=== PATIENT | female | born 1940 | race Caucasian/White ===

== ENCOUNTER 2017-07-30 10:31 | Inpatient (IN) | payer OTHER ==
[2017-07-30] MEDS: VANCOMYCIN 1 GM 250 ML IVPB (13:07)
[2017-07-30] MEDS ORDERED: PROPOFOL 20 ML (14:19)
[2017-07-30] MEDS ORDERED: MIDAZOLAM 1 MG/ML 2 ML INJ (14:20)
[2017-07-30] MEDS ORDERED: FENTAnyl 50 MCG/ML VIAL ×3 (14:20→14:52)
[2017-07-30] MEDS ORDERED: ONDANSETRON 4 MG INJ (14:20)
[2017-07-30] MEDS ORDERED: METOCLOPRAMIDE 10 MG INJ (14:20)
[2017-07-30] MEDS ORDERED: LABETALOL HCL 20MG INJ IV (15:00)
[2017-07-30] MEDS ORDERED: DIPHENHYDRAMINE 50 MG INJ IV (15:00)
[2017-07-30] MEDS ORDERED: HYDROmorphONE (0.2 MG/ML) 10ML SYG IV ×3 (15:00)
[2017-07-30] MEDS ORDERED: ONDANSETRON 4 MG INJ IV (15:00)
[2017-07-30] MEDS ORDERED: MEPERIDINE 25 MG INJ IV (15:00)
[2017-07-30] MEDS ORDERED: hydrALAzine 20 MG INJ IV (15:00)
[2017-07-30] MEDS ORDERED: morphine 2 MG INJ IV (15:30)
[2017-07-30] MEDS ORDERED: HYDROmorphONE 2 MG/ML SYG (15:33)
[2017-07-30] MEDS: SOD CHLORIDE 0.9% 1,000 ML IV (18:08)
[2017-07-30] MEDS: ONDANSETRON 4 MG INJ IV (18:13)
[2017-07-30] MEDS: D5W-0.45 NACL + KCL 20 MEQ 1,000 ML IV (18:13)
[2017-07-31] MEDS: D5W-0.45 NACL + KCL 20 MEQ 1,000 ML IV ×4 (02:03→18:02)
[2017-07-31] MEDS: traMADol 50 MG TAB PO (05:23)
[2017-07-31] MEDS: ONDANSETRON 4 MG INJ IV (08:46)
[2017-07-31] MEDS: AL HYDROX/MG HYDROX/SIMETH 30 ML CUP PO (13:20)
[2017-07-31] MEDS: PANTOPRAZOLE (EC) 40 MG TAB PO ×2 (13:20→17:59)
[2017-08-01] MEDS: D5W-0.45 NACL + KCL 20 MEQ 1,000 ML IV ×2 (03:35→09:23)
[2017-08-01 05:15] LABS: ADD MAN DIFF? NO
[2017-08-01 05:18] LABS: BASOPHILS % 0.4 % (0.0-2.0); EOSINOPHILS # 0.1 10^3/ul (0.0-0.5); HEMATOCRIT 24.8 % (37.0-47.0); HEMOGLOBIN 8.2 g/dl (12.0-16.0); LYMPHOCYTES # 1.9 10^3/ul (0.8-2.9); LYMPHOCYTES % 37.1 % (15.0-51.0); MEAN CORPUSCULAR HEMOGLOBIN 30.7 pg (29.0-33.0); MEAN CORPUSCULAR HGB CONC 33.1 g/dl (32.0-37.0); MEAN CORPUSCULAR VOLUME 92.9 fl (82.0-101.0); MEAN PLATELET VOLUME 9.5 fl (7.4-10.4); MONOCYTE # 0.4 10^3/ul (0.3-0.9); MONOCYTES % 8.2 % (0.0-11.0); NEUTROPHIL # 2.6 10^3/ul (1.6-7.5); NEUTROPHILS % 52.1 % (39.0-77.0); PLATELET COUNT 153 10^3/UL (140-415); RED BLOOD COUNT 2.67 10^6/ul (4.20-5.40); RED CELL DISTRIBUTION WIDTH 15.6 % (11.5-14.5)
[2017-08-01 05:39] LABS: ANION GAP 9 (8-16); BLOOD UREA NITROGEN 8 mg/dl (7-20); CALCIUM 8.5 mg/dl (8.4-10.2); CARBON DIOXIDE 24 mmol/L (21-31); CHLORIDE 111 mmol/L (97-110); CREATININE 0.77 mg/dl (0.44-1.00); GLUCOSE 98 mg/dl (70-220); POTASSIUM 4.1 mmol/L (3.5-5.1); SODIUM 140 mmol/L (135-144)
[2017-08-01 05:41] LABS: INR 1.08; PROTIME 14.1 Sec (11.9-14.9); PT RATIO 1.1
[2017-08-01] MEDS: PANTOPRAZOLE (EC) 40 MG TAB PO (06:02)
== END 2017-08-01 14:55 | disposition home or self-care (01) | DRG 583 ==
LOC: REC 10:31 → MS1 16:09
PROC: 0HTU0ZZ Resection of Left Breast, Open Approach (ICD-10-PCS; principal; 2017-07-30 14:21)
DX: C50.912 Malignant neoplasm of unspecified site of left female breast (principal)
CPT/HCPCS: 71045; 80048; 85025; 85610; 85730; 88307; 93005

== ENCOUNTER 2017-08-02 09:52 | Emergency (ER) | payer OTHER | END 2017-08-02 12:28 | disposition home or self-care (01) | LOC: E/R 09:52 | DX: Z48.01 Encounter for change or removal of surgical wound dressing (principal); I10 Essential (primary) hypertension; Z85.3 Personal history of malignant neoplasm of breast | CPT/HCPCS: 99281; Z7502 ==

== ENCOUNTER 2017-12-03 15:47 | Inpatient (IN) | payer OTHER ==
[2017-12-03 16:37] LABS: ADD MAN DIFF? NO
[2017-12-03 16:43] LABS: BASOPHILS % 0.1 % (0.0-2.0); HEMATOCRIT 33.1 % (37.0-47.0); HEMOGLOBIN 11.3 g/dl (12.0-16.0); LYMPHOCYTES # 0.7 10^3/ul (0.8-2.9); LYMPHOCYTES % 4.8 % (15.0-51.0); MEAN CORPUSCULAR HEMOGLOBIN 31.7 pg (29.0-33.0); MEAN CORPUSCULAR HGB CONC 34.1 g/dl (32.0-37.0); MEAN CORPUSCULAR VOLUME 92.7 fl (82.0-101.0); MEAN PLATELET VOLUME 9.8 fl (7.4-10.4); MONOCYTE # 0.4 10^3/ul (0.3-0.9); MONOCYTES % 2.7 % (0.0-11.0); NEUTROPHIL # 13.7 10^3/ul (1.6-7.5); PLATELET COUNT 223 10^3/UL (140-415); RED BLOOD COUNT 3.57 10^6/ul (4.20-5.40); RED CELL DISTRIBUTION WIDTH 13.7 % (11.5-14.5)
[2017-12-03 16:43] LABS: WHITE BLOOD COUNT 15.1 10^3/ul (4.8-10.8)
[2017-12-03] MEDS: ONDANSETRON 4 MG INJ IV (16:45)
[2017-12-03] MEDS: SOD CHLORIDE 0.9% 1,000 ML IV ×3 (16:45→20:03)
[2017-12-03] MEDS: morphine 4 MG/ML VIAL IV (16:45)
[2017-12-03 16:46] LABS: ADD UMIC YES; UR ASCORBIC ACID NEGATIVE (NEGATIVE); UR BILIRUBIN (Dip) 1+ mg/dL (NEGATIVE); UR BLOOD (Dip) 1+ mg/dL (NEGATIVE); UR CLARITY CLEAR (CLEAR); UR COLOR AMBER (YELLOW); UR GLUCOSE (Dip) NEGATIVE (NEGATIVE); UR KETONES (Dip) NEGATIVE (NEGATIVE); UR LEUKOCYTE ESTERASE (Dip) TRACE Leu/ul (NEGATIVE); UR NITRITE (Dip) NEGATIVE (NEGATIVE); UR RBC 10 /HPF (0-5); UR SPECIFIC GRAVITY (Dip) 1.014 (1.003-1.030); UR TOTAL PROTEIN (Dip) 2+ mg/dl (NEGATIVE); UR UROBILINOGEN (Dip) 2+ mg/dL (NEGATIVE); UR WBC 3 /HPF (0-5)
[2017-12-03 17:01] LABS: ALANINE AMINOTRANSFERASE 234 IU/L (13-69); ALBUMIN 4.4 g/dl (3.3-4.9); ALBUMIN/GLOBULIN RATIO 1.12; ALKALINE PHOSPHATASE 304 IU/L (42-121); ANION GAP 16 (8-16); ASPARTATE AMINO TRANSFERASE 247 IU/L (15-46); BILIRUBIN,INDIRECT 1.4 mg/dl (0-1.1); BILIRUBIN,TOTAL 3.7 mg/dl (0.2-1.3); BLOOD UREA NITROGEN 16 mg/dl (7-20); CALCIUM 9.1 mg/dl (8.4-10.2); CARBON DIOXIDE 23 mmol/L (21-31); CHLORIDE 105 mmol/L (97-110); CREATININE 0.99 mg/dl (0.44-1.00); GLUCOSE 119 mg/dl (70-220); POTASSIUM 3.6 mmol/L (3.5-5.1); SODIUM 140 mmol/L (135-144); TOTAL PROTEIN 8.3 g/dl (6.1-8.1)
[2017-12-03 17:22] LABS: LIPASE 14991 U/L (23-300)
[2017-12-03] MEDS ORDERED: ONDANSETRON 4 MG INJ IV ×2 (19:00→20:30)
[2017-12-03 19:23] LABS: LACTIC ACID 1.5 mmol/L (0.5-2.0)
[2017-12-03] MEDS: CEFTRIAXONE 1 GM/50 ML (PMX) 50 ML IVPB (19:25)
[2017-12-03] MEDS ORDERED: NACL 0.9% 3 ML SYG IV (20:30)
[2017-12-03] MEDS ORDERED: morphine 2 MG INJ IV (20:30)
[2017-12-03 21:32] LABS: LACTIC ACID 1.9 mmol/L (0.5-2.0)
[2017-12-04] MEDS: SOD CHLORIDE 0.9% 1,000 ML IV ×2 (05:15→16:11)
[2017-12-04 05:31] LABS: ADD MAN DIFF? NO
[2017-12-04 05:35] LABS: ABNORMAL IP MESSAGE 1; BASOPHILS % 0.2 % (0.0-2.0); HEMATOCRIT 31.1 % (37.0-47.0); HEMOGLOBIN 10.5 g/dl (12.0-16.0); LYMPHOCYTES # 0.4 10^3/ul (0.8-2.9); LYMPHOCYTES % 4.2 % (15.0-51.0); MEAN CORPUSCULAR HEMOGLOBIN 31.7 pg (29.0-33.0); MEAN CORPUSCULAR HGB CONC 33.8 g/dl (32.0-37.0); MEAN PLATELET VOLUME 10.1 fl (7.4-10.4); MONOCYTE # 0.1 10^3/ul (0.3-0.9); MONOCYTES % 1.4 % (0.0-11.0); NEUTROPHIL # 9.6 10^3/ul (1.6-7.5); NEUTROPHILS % 93.6 % (39.0-77.0); PLATELET COUNT 174 10^3/UL (140-415); RED BLOOD COUNT 3.31 10^6/ul (4.20-5.40); RED CELL DISTRIBUTION WIDTH 13.9 % (11.5-14.5)
[2017-12-04 05:35] LABS: WHITE BLOOD COUNT 10.3 10^3/ul (4.8-10.8)
[2017-12-04 05:47] LABS: POSITIVE DIFF @See below
[2017-12-04 06:03] LABS: ALANINE AMINOTRANSFERASE 162 IU/L (13-69); ALBUMIN 3.8 g/dl (3.3-4.9); ALBUMIN/GLOBULIN RATIO 1.11; ALKALINE PHOSPHATASE 267 IU/L (42-121); ANION GAP 14 (8-16); ASPARTATE AMINO TRANSFERASE 127 IU/L (15-46); BILIRUBIN,TOTAL 2.9 mg/dl (0.2-1.3); BLOOD UREA NITROGEN 12 mg/dl (7-20); CALCIUM 8.1 mg/dl (8.4-10.2); CARBON DIOXIDE 21 mmol/L (21-31); CHLORIDE 109 mmol/L (97-110); CREATININE 0.74 mg/dl (0.44-1.00); GLUCOSE 98 mg/dl (70-220); POTASSIUM 3.2 mmol/L (3.5-5.1); SODIUM 141 mmol/L (135-144); TOTAL PROTEIN 7.2 g/dl (6.1-8.1)
[2017-12-04 06:57] LABS: HEMOGLOBIN A1C 5.8 % (0-5.9)
[2017-12-04] MEDS: ENOXAPARIN 30 MG/0.3 ML SYG SC (08:42)
[2017-12-04] MEDS ORDERED: IOHEXOL 300MG/ML 30 ML BTL (12:16)
[2017-12-04] MEDS ORDERED: GLYCOPYRROLATE 0.4 MG INJ (12:43)
[2017-12-04] MEDS ORDERED: LIDOCAINE 2% (SDV) 5 ML INJ (12:43)
[2017-12-04] MEDS ORDERED: ROCURONIUM 50 MG INJ (12:43)
[2017-12-04] MEDS ORDERED: PROPOFOL 20 ML (12:43)
[2017-12-04] MEDS ORDERED: SUCCINYLCHOLINE CHLORIDE 100 MG/5 ML SYG IV (12:43)
[2017-12-04] MEDS ORDERED: NEOSTIGMINE 3 MG/3 ML SYRINGE (12:44)
[2017-12-04] MEDS ORDERED: DEXAMETHASONE 4 MG/ML 1 ML INJ (13:03)
[2017-12-04] MEDS ORDERED: DIPHENHYDRAMINE 50 MG INJ (13:03)
[2017-12-04] MEDS ORDERED: ONDANSETRON 4 MG INJ (13:24)
[2017-12-04] MEDS ORDERED: ONDANSETRON 4 MG INJ IV (13:30)
[2017-12-04] MEDS ORDERED: DIPHENHYDRAMINE 50 MG INJ IV (13:30)
[2017-12-04] MEDS ORDERED: MEPERIDINE 25 MG INJ IV (13:30)
[2017-12-04] MEDS ORDERED: FENTAnyl 50 MCG/ML VIAL IV ×3 (13:30)
[2017-12-04] MEDS ORDERED: EPHEDrine SULFATE 50 MG/5 ML SYG IV (13:30)
[2017-12-04] MEDS ORDERED: METOCLOPRAMIDE 10 MG INJ IV (13:30)
[2017-12-04] MEDS ORDERED: HYDROmorphONE 1 MG/5 ML IV SYRINGE IV ×3 (13:30)
[2017-12-04] MEDS ORDERED: MIDAZOLAM 1 MG/ML 2 ML INJ IV (13:30)
[2017-12-04] MEDS ORDERED: hydrALAzine 20 MG INJ IV (13:30)
[2017-12-04] MEDS ORDERED: LABETALOL HCL 20MG INJ IV (13:30)
[2017-12-04] MEDS: INDOMETHACIN 50 MG SUPP PR (13:58)
[2017-12-04] MEDS: MEROPENEM 1 GM/50ML(PMX) 50 ML IVPB (15:39)
[2017-12-04] MEDS: metroNIDAZOLE 500 MG/NS (PMX) 100 ML IVPB ×2 (17:26→23:50)
[2017-12-05] MEDS: SOD CHLORIDE 0.9% 1,000 ML IV ×2 (02:03→06:17)
[2017-12-05] MEDS: MEROPENEM 1 GM/50ML(PMX) 50 ML IVPB ×3 (02:21→20:38)
[2017-12-05 05:52] LABS: WHITE BLOOD COUNT 10.2 10^3/ul (4.8-10.8)
[2017-12-05 05:52] LABS: HEMATOCRIT 26.2 % (37.0-47.0); HEMOGLOBIN 8.6 g/dl (12.0-16.0); MEAN CORPUSCULAR HEMOGLOBIN 30.8 pg (29.0-33.0); MEAN CORPUSCULAR HGB CONC 32.8 g/dl (32.0-37.0); MEAN CORPUSCULAR VOLUME 93.9 fl (82.0-101.0); MEAN PLATELET VOLUME 10.7 fl (7.4-10.4); PLATELET COUNT 141 10^3/UL (140-415); RED BLOOD COUNT 2.79 10^6/ul (4.20-5.40); RED CELL DISTRIBUTION WIDTH 14.1 % (11.5-14.5)
[2017-12-05 05:59] LABS: ADD MAN DIFF? YES; POSITIVE DIFF @See below
[2017-12-05] MEDS: metroNIDAZOLE 500 MG/NS (PMX) 100 ML IVPB ×4 (06:18→23:46)
[2017-12-05 06:24] LABS: ALANINE AMINOTRANSFERASE 96 IU/L (13-69); ALBUMIN 3.1 g/dl (3.3-4.9); ALKALINE PHOSPHATASE 224 IU/L (42-121); ANION GAP 10 (8-16); ASPARTATE AMINO TRANSFERASE 48 IU/L (15-46); BILIRUBIN,INDIRECT 0.7 mg/dl (0-1.1); BILIRUBIN,TOTAL 0.7 mg/dl (0.2-1.3); BLOOD UREA NITROGEN 18 mg/dl (7-20); CALCIUM 7.6 mg/dl (8.4-10.2); CARBON DIOXIDE 22 mmol/L (21-31); CHLORIDE 114 mmol/L (97-110); CREATININE 0.71 mg/dl (0.44-1.00); GLUCOSE 110 mg/dl (70-220); LIPASE 607 U/L (23-300); POTASSIUM 3.3 mmol/L (3.5-5.1); SODIUM 143 mmol/L (135-144); TOTAL PROTEIN 6.2 g/dl (6.1-8.1)
[2017-12-05 07:52] LABS: BAND NEUTROPHILS % (M) 30 % (0-4); LYMPHOCYTES #M 0.4 10^3/ul (0.8-2.9); LYMPHOCYTES % (M) 4 % (15-51); MONOCYTE #M 0.1 10^3/ul (0.3-0.9); MONOCYTES % (M) 1 % (0-11); PLATELET ESTIMATE NORMAL; SEG NEUT #M 6.9 10^3/ul (1.6-7.5); SEGMENTED NEUTROPHILS (M) % 65 % (39-77); SMUDGE%M 11 % (0-0)
[2017-12-05] MEDS: HYDROmorphONE 1 MG/ML SYG IV ×3 (09:08→20:41)
[2017-12-05] MEDS: ENOXAPARIN 30 MG/0.3 ML SYG SC (09:16)
[2017-12-05] MEDS: D5W-0.45 NACL + KCL 20 MEQ 1,000 ML IV ×2 (13:28→23:43)
[2017-12-05] MEDS: DIPHENHYDRAMINE 50 MG INJ IV (19:00)
[2017-12-05 22:44] LABS: HEMATOCRIT 25.3 % (37.0-47.0); HEMOGLOBIN 8.7 g/dl (12.0-16.0)
[2017-12-06] MEDS: D5W-0.45 NACL + KCL 20 MEQ 1,000 ML IV ×3 (05:00→18:33)
[2017-12-06] MEDS: metroNIDAZOLE 500 MG/NS (PMX) 100 ML IVPB (06:01)
[2017-12-06 06:10] LABS: ADD MAN DIFF? NO
[2017-12-06 06:41] LABS: BASOPHILS % 0.1 % (0.0-2.0); EOSINOPHILS % 0.4 % (0.0-7.0); HEMATOCRIT 28.7 % (37.0-47.0); HEMOGLOBIN 9.4 g/dl (12.0-16.0); LYMPHOCYTES # 1.4 10^3/ul (0.8-2.9); LYMPHOCYTES % 15.3 % (15.0-51.0); MEAN CORPUSCULAR HEMOGLOBIN 30.8 pg (29.0-33.0); MEAN CORPUSCULAR HGB CONC 32.8 g/dl (32.0-37.0); MEAN CORPUSCULAR VOLUME 94.1 fl (82.0-101.0); MEAN PLATELET VOLUME 10.8 fl (7.4-10.4); MONOCYTE # 0.3 10^3/ul (0.3-0.9); MONOCYTES % 3.3 % (0.0-11.0); NEUTROPHIL # 7.4 10^3/ul (1.6-7.5); NEUTROPHILS % 80.5 % (39.0-77.0); PLATELET COUNT 158 10^3/UL (140-415); RED BLOOD COUNT 3.05 10^6/ul (4.20-5.40); RED CELL DISTRIBUTION WIDTH 14.3 % (11.5-14.5)
[2017-12-06 06:41] LABS: WHITE BLOOD COUNT 9.3 10^3/ul (4.8-10.8)
[2017-12-06 06:43] LABS: ALANINE AMINOTRANSFERASE 76 IU/L (13-69); ALBUMIN 3.1 g/dl (3.3-4.9); ALBUMIN/GLOBULIN RATIO 0.88; ALKALINE PHOSPHATASE 209 IU/L (42-121); ANION GAP 10 (8-16); ASPARTATE AMINO TRANSFERASE 25 IU/L (15-46); BILIRUBIN,INDIRECT 0.6 mg/dl (0-1.1); BILIRUBIN,TOTAL 0.6 mg/dl (0.2-1.3); BLOOD UREA NITROGEN 15 mg/dl (7-20); CARBON DIOXIDE 20 mmol/L (21-31); CHLORIDE 115 mmol/L (97-110); CREATININE 0.56 mg/dl (0.44-1.00); GLUCOSE 139 mg/dl (70-220); LIPASE 478 U/L (23-300); POTASSIUM 3.2 mmol/L (3.5-5.1); SODIUM 142 mmol/L (135-144); TOTAL PROTEIN 6.6 g/dl (6.1-8.1)
[2017-12-06] MEDS: MEROPENEM 1 GM/50ML(PMX) 50 ML IVPB ×2 (08:46→21:02)
[2017-12-06] MEDS: ENOXAPARIN 30 MG/0.3 ML SYG SC (08:48)
[2017-12-06 09:47] LABS: HEMATOCRIT 28.3 % (37.0-47.0); HEMOGLOBIN 9.4 g/dl (12.0-16.0)
[2017-12-06 22:31] LABS: HEMATOCRIT 28.7 % (37.0-47.0); HEMOGLOBIN 9.9 g/dl (12.0-16.0)
[2017-12-07] MEDS: D5W-0.45 NACL + KCL 20 MEQ 1,000 ML IV ×3 (03:25→20:32)
[2017-12-07 06:00] LABS: ADD MAN DIFF? NO
[2017-12-07 06:04] LABS: WHITE BLOOD COUNT 8.5 10^3/ul (4.8-10.8)
[2017-12-07 06:04] LABS: BASOPHILS % 0.2 % (0.0-2.0); EOSINOPHILS # 0.1 10^3/ul (0.0-0.5); EOSINOPHILS % 0.8 % (0.0-7.0); HEMATOCRIT 29.1 % (37.0-47.0); HEMOGLOBIN 10.2 g/dl (12.0-16.0); MEAN CORPUSCULAR HEMOGLOBIN 31.8 pg (29.0-33.0); MEAN CORPUSCULAR HGB CONC 35.1 g/dl (32.0-37.0); MEAN CORPUSCULAR VOLUME 90.7 fl (82.0-101.0); MEAN PLATELET VOLUME 10.8 fl (7.4-10.4); MONOCYTE # 0.7 10^3/ul (0.3-0.9); MONOCYTES % 8.6 % (0.0-11.0); NEUTROPHIL # 5.7 10^3/ul (1.6-7.5); NEUTROPHILS % 66.9 % (39.0-77.0); PLATELET COUNT 157 10^3/UL (140-415); RED BLOOD COUNT 3.21 10^6/ul (4.20-5.40); RED CELL DISTRIBUTION WIDTH 13.5 % (11.5-14.5)
[2017-12-07 06:30] LABS: ALANINE AMINOTRANSFERASE 61 IU/L (13-69); ALBUMIN 3.1 g/dl (3.3-4.9); ALKALINE PHOSPHATASE 208 IU/L (42-121); ANION GAP 9 (8-16); ASPARTATE AMINO TRANSFERASE 22 IU/L (15-46); BILIRUBIN,INDIRECT 0.9 mg/dl (0-1.1); BILIRUBIN,TOTAL 0.9 mg/dl (0.2-1.3); BLOOD UREA NITROGEN 5 mg/dl (7-20); CALCIUM 7.8 mg/dl (8.4-10.2); CARBON DIOXIDE 24 mmol/L (21-31); CHLORIDE 103 mmol/L (97-110); CREATININE 0.43 mg/dl (0.44-1.00); GLUCOSE 149 mg/dl (70-220); SODIUM 133 mmol/L (135-144); TOTAL PROTEIN 6.2 g/dl (6.1-8.1)
[2017-12-07 06:37] LABS: POTASSIUM 2.6 mmol/L (3.5-5.1)
[2017-12-07] MEDS ORDERED: POTASSIUM CHLORIDE (SR) 20 MEQ TAB PO (06:54)
[2017-12-07] MEDS: POTASSIUM CHLORIDE (SR) 20 MEQ TAB PO (07:04)
[2017-12-07] MEDS: MEROPENEM 1 GM/50ML(PMX) 50 ML IVPB ×2 (08:29→20:28)
[2017-12-07] MEDS: ENOXAPARIN 30 MG/0.3 ML SYG SC (08:29)
[2017-12-07 10:06] LABS: HEMATOCRIT 29.1 % (37.0-47.0); HEMOGLOBIN 10.1 g/dl (12.0-16.0)
[2017-12-07 14:08] LABS: OCCULT BLOOD STOOL NEGATIVE (NEGATIVE)
[2017-12-07 22:13] LABS: HEMATOCRIT 29.1 % (37.0-47.0); HEMOGLOBIN 10.1 g/dl (12.0-16.0)
[2017-12-08] MEDS: D5W-0.45 NACL + KCL 20 MEQ 1,000 ML IV ×5 (05:36→23:35)
[2017-12-08 06:38] LABS: ADD MAN DIFF? NO
[2017-12-08 06:48] LABS: BASOPHILS % 0.3 % (0.0-2.0); EOSINOPHILS # 0.1 10^3/ul (0.0-0.5); EOSINOPHILS % 0.8 % (0.0-7.0); HEMATOCRIT 29.7 % (37.0-47.0); HEMOGLOBIN 10.4 g/dl (12.0-16.0); LYMPHOCYTES # 2.1 10^3/ul (0.8-2.9); LYMPHOCYTES % 27.3 % (15.0-51.0); MEAN CORPUSCULAR HEMOGLOBIN 31.5 pg (29.0-33.0); MEAN PLATELET VOLUME 10.8 fl (7.4-10.4); MONOCYTE # 0.7 10^3/ul (0.3-0.9); MONOCYTES % 9.1 % (0.0-11.0); NEUTROPHIL # 4.7 10^3/ul (1.6-7.5); PLATELET COUNT 160 10^3/UL (140-415); RED CELL DISTRIBUTION WIDTH 13.3 % (11.5-14.5); RETICULOCYTE COUNT # 0.013 X10^6 (0.020-0.110); RETICULOCYTE COUNT % 0.4 % (0.5-1.5)
[2017-12-08 06:48] LABS: WHITE BLOOD COUNT 7.6 10^3/ul (4.8-10.8)
[2017-12-08 07:14] LABS: ALANINE AMINOTRANSFERASE 47 IU/L (13-69); ALBUMIN 3.1 g/dl (3.3-4.9); ALBUMIN/GLOBULIN RATIO 0.93; ALKALINE PHOSPHATASE 192 IU/L (42-121); ANION GAP 11 (8-16); ASPARTATE AMINO TRANSFERASE 32 IU/L (15-46); BILIRUBIN,INDIRECT 0.8 mg/dl (0-1.1); BILIRUBIN,TOTAL 0.8 mg/dl (0.2-1.3); BLOOD UREA NITROGEN 5 mg/dl (7-20); CALCIUM 8.4 mg/dl (8.4-10.2); CARBON DIOXIDE 21 mmol/L (21-31); CHLORIDE 104 mmol/L (97-110); CREATININE 0.48 mg/dl (0.44-1.00); GLUCOSE 136 mg/dl (70-220); LIPASE 842 U/L (23-300); POTASSIUM 3.4 mmol/L (3.5-5.1); SODIUM 133 mmol/L (135-144); TOTAL PROTEIN 6.4 g/dl (6.1-8.1)
[2017-12-08] MEDS: MEROPENEM 1 GM/50ML(PMX) 50 ML IVPB ×2 (09:19→20:25)
[2017-12-08] MEDS: ENOXAPARIN 30 MG/0.3 ML SYG SC (09:21)
[2017-12-08] MEDS: POTASSIUM CHLORIDE 20 MEQ POWDER FOR ORAL SOLN PO (13:41)
[2017-12-09] MEDS: D5W-0.45 NACL + KCL 20 MEQ 1,000 ML IV ×3 (05:00→18:12)
[2017-12-09] MEDS: PANTOPRAZOLE 40 MG INJ IV (06:23)
[2017-12-09 06:24] LABS: ADD MAN DIFF? NO
[2017-12-09 06:29] LABS: BASOPHILS % 0.3 % (0.0-2.0); EOSINOPHILS # 0.1 10^3/ul (0.0-0.5); EOSINOPHILS % 1.6 % (0.0-7.0); HEMATOCRIT 29.3 % (37.0-47.0); HEMOGLOBIN 10.1 g/dl (12.0-16.0); LYMPHOCYTES % 30.7 % (15.0-51.0); MEAN CORPUSCULAR HEMOGLOBIN 30.9 pg (29.0-33.0); MEAN CORPUSCULAR HGB CONC 34.5 g/dl (32.0-37.0); MEAN CORPUSCULAR VOLUME 89.6 fl (82.0-101.0); MONOCYTE # 0.7 10^3/ul (0.3-0.9); MONOCYTES % 10.1 % (0.0-11.0); NEUTROPHIL # 3.6 10^3/ul (1.6-7.5); NEUTROPHILS % 56.5 % (39.0-77.0); PLATELET COUNT 196 10^3/UL (140-415); RED BLOOD COUNT 3.27 10^6/ul (4.20-5.40); RED CELL DISTRIBUTION WIDTH 13.8 % (11.5-14.5)
[2017-12-09 06:29] LABS: WHITE BLOOD COUNT 6.4 10^3/ul (4.8-10.8)
[2017-12-09 06:31] LABS: POSITIVE DIFF @See below
[2017-12-09 06:49] LABS: AMYLASE 154 U/L (11-123)
[2017-12-09 06:49] LABS: LIPASE 1094 U/L (23-300)
[2017-12-09] MEDS: MEROPENEM 1 GM/50ML(PMX) 50 ML IVPB ×2 (08:51→21:03)
[2017-12-09] MEDS: ENOXAPARIN 30 MG/0.3 ML SYG SC (08:52)
[2017-12-10] MEDS: D5W-0.45 NACL + KCL 20 MEQ 1,000 ML IV ×3 (03:08→20:13)
[2017-12-10] MEDS: PANTOPRAZOLE 40 MG INJ IV (06:11)
[2017-12-10 07:15] LABS: ADD MAN DIFF? NO
[2017-12-10 07:23] LABS: BASOPHILS % 0.3 % (0.0-2.0); EOSINOPHILS # 0.2 10^3/ul (0.0-0.5); EOSINOPHILS % 2.4 % (0.0-7.0); HEMATOCRIT 29.9 % (37.0-47.0); HEMOGLOBIN 10.3 g/dl (12.0-16.0); LYMPHOCYTES # 2.7 10^3/ul (0.8-2.9); LYMPHOCYTES % 38.8 % (15.0-51.0); MEAN CORPUSCULAR HGB CONC 34.4 g/dl (32.0-37.0); MEAN CORPUSCULAR VOLUME 92.9 fl (82.0-101.0); MEAN PLATELET VOLUME 10.1 fl (7.4-10.4); MONOCYTE # 0.7 10^3/ul (0.3-0.9); MONOCYTES % 10.3 % (0.0-11.0); NEUTROPHIL # 3.3 10^3/ul (1.6-7.5); NEUTROPHILS % 47.6 % (39.0-77.0); PLATELET COUNT 268 10^3/UL (140-415); RED BLOOD COUNT 3.22 10^6/ul (4.20-5.40)
[2017-12-10 07:47] LABS: ANION GAP 10 (8-16); BLOOD UREA NITROGEN 3 mg/dl (7-20); CALCIUM 9.1 mg/dl (8.4-10.2); CARBON DIOXIDE 22 mmol/L (21-31); CHLORIDE 106 mmol/L (97-110); CREATININE 0.48 mg/dl (0.44-1.00); GLUCOSE 104 mg/dl (70-220); LIPASE 1066 U/L (23-300); SODIUM 134 mmol/L (135-144)
[2017-12-10] MEDS: ENOXAPARIN 30 MG/0.3 ML SYG SC (08:37)
[2017-12-10] MEDS: MEROPENEM 1 GM/50ML(PMX) 50 ML IVPB ×2 (08:37→20:13)
[2017-12-10] MEDS ORDERED: IOHEXOL 14.3 MG(I)/ML (ADULT) BTL PO (19:00)
[2017-12-10] MEDS: HYDROmorphONE 1 MG/ML SYG IV (20:09)
[2017-12-11 05:46] LABS: ADD MAN DIFF? NO
[2017-12-11 05:50] LABS: BASOPHILS % 0.5 % (0.0-2.0); EOSINOPHILS # 0.2 10^3/ul (0.0-0.5); EOSINOPHILS % 2.7 % (0.0-7.0); HEMATOCRIT 28.8 % (37.0-47.0); HEMOGLOBIN 9.6 g/dl (12.0-16.0); LYMPHOCYTES # 1.7 10^3/ul (0.8-2.9); LYMPHOCYTES % 29.9 % (15.0-51.0); MEAN CORPUSCULAR HEMOGLOBIN 30.6 pg (29.0-33.0); MEAN CORPUSCULAR HGB CONC 33.3 g/dl (32.0-37.0); MEAN CORPUSCULAR VOLUME 91.7 fl (82.0-101.0); MEAN PLATELET VOLUME 9.6 fl (7.4-10.4); MONOCYTE # 0.5 10^3/ul (0.3-0.9); MONOCYTES % 9.6 % (0.0-11.0); NEUTROPHIL # 3.2 10^3/ul (1.6-7.5); NEUTROPHILS % 56.6 % (39.0-77.0); PLATELET COUNT 289 10^3/UL (140-415); RED BLOOD COUNT 3.14 10^6/ul (4.20-5.40); RED CELL DISTRIBUTION WIDTH 14.2 % (11.5-14.5)
[2017-12-11 05:50] LABS: WHITE BLOOD COUNT 5.6 10^3/ul (4.8-10.8)
[2017-12-11] MEDS: D5W-0.45 NACL + KCL 20 MEQ 1,000 ML IV ×3 (05:54→20:41)
[2017-12-11] MEDS: PANTOPRAZOLE 40 MG INJ IV (05:54)
[2017-12-11 06:15] LABS: AMYLASE 211 U/L (11-123); ANION GAP 9 (8-16); BLOOD UREA NITROGEN 4 mg/dl (7-20); CALCIUM 9.2 mg/dl (8.4-10.2); CARBON DIOXIDE 24 mmol/L (21-31); CHLORIDE 104 mmol/L (97-110); CREATININE 0.47 mg/dl (0.44-1.00); GLUCOSE 114 mg/dl (70-220); LIPASE 1021 U/L (23-300); POTASSIUM 3.9 mmol/L (3.5-5.1); SODIUM 133 mmol/L (135-144)
[2017-12-11] MEDS ORDERED: DIATR MEGLU/DIATRIZOATE SODIUM 120 ML BTL (07:59)
[2017-12-11] MEDS: MEROPENEM 1 GM/50ML(PMX) 50 ML IVPB ×2 (10:04→20:40)
[2017-12-11 16:16] LABS: OCCULT BLOOD STOOL NEGATIVE (NEGATIVE)
[2017-12-12 05:32] LABS: ADD MAN DIFF? NO
[2017-12-12 05:34] LABS: BASOPHILS % 0.5 % (0.0-2.0); EOSINOPHILS # 0.1 10^3/ul (0.0-0.5); EOSINOPHILS % 1.6 % (0.0-7.0); HEMATOCRIT 27.9 % (37.0-47.0); HEMOGLOBIN 9.2 g/dl (12.0-16.0); LYMPHOCYTES # 2.2 10^3/ul (0.8-2.9); LYMPHOCYTES % 33.7 % (15.0-51.0); MEAN CORPUSCULAR HEMOGLOBIN 30.7 pg (29.0-33.0); MEAN PLATELET VOLUME 9.4 fl (7.4-10.4); MONOCYTE # 0.7 10^3/ul (0.3-0.9); MONOCYTES % 10.1 % (0.0-11.0); NEUTROPHIL # 3.5 10^3/ul (1.6-7.5); NEUTROPHILS % 53.6 % (39.0-77.0); PLATELET COUNT 329 10^3/UL (140-415); RED CELL DISTRIBUTION WIDTH 14.5 % (11.5-14.5)
[2017-12-12 05:34] LABS: WHITE BLOOD COUNT 6.4 10^3/ul (4.8-10.8)
[2017-12-12] MEDS: PANTOPRAZOLE 40 MG INJ IV (05:42)
[2017-12-12 06:25] LABS: AMYLASE 205 U/L (11-123)
[2017-12-12 06:25] LABS: LIPASE 1210 U/L (23-300)
[2017-12-12] MEDS: MEROPENEM 1 GM/50ML(PMX) 50 ML IVPB ×2 (08:42→21:08)
[2017-12-12] MEDS: D5W-0.45 NACL + KCL 20 MEQ 1,000 ML IV (15:12)
[2017-12-12 15:59] LABS: OCCULT BLOOD STOOL NEGATIVE (NEGATIVE)
[2017-12-13 06:11] LABS: ADD MAN DIFF? NO
[2017-12-13] MEDS: PANTOPRAZOLE 40 MG INJ IV (06:15)
[2017-12-13 06:21] LABS: WHITE BLOOD COUNT 7.3 10^3/ul (4.8-10.8)
[2017-12-13 06:21] LABS: BASOPHILS % 0.4 % (0.0-2.0); EOSINOPHILS # 0.1 10^3/ul (0.0-0.5); EOSINOPHILS % 1.2 % (0.0-7.0); HEMATOCRIT 28.8 % (37.0-47.0); HEMOGLOBIN 9.6 g/dl (12.0-16.0); LYMPHOCYTES # 2.5 10^3/ul (0.8-2.9); LYMPHOCYTES % 34.5 % (15.0-51.0); MEAN CORPUSCULAR HEMOGLOBIN 31.3 pg (29.0-33.0); MEAN CORPUSCULAR HGB CONC 33.3 g/dl (32.0-37.0); MEAN CORPUSCULAR VOLUME 93.8 fl (82.0-101.0); MEAN PLATELET VOLUME 9.3 fl (7.4-10.4); MONOCYTE # 0.6 10^3/ul (0.3-0.9); NEUTROPHILS % 55.5 % (39.0-77.0); PLATELET COUNT 361 10^3/UL (140-415); RED BLOOD COUNT 3.07 10^6/ul (4.20-5.40); RED CELL DISTRIBUTION WIDTH 14.3 % (11.5-14.5)
[2017-12-13] MEDS: MEROPENEM 1 GM/50ML(PMX) 50 ML IVPB ×2 (08:50→20:42)
[2017-12-13] MEDS: D5W-0.45 NACL + KCL 20 MEQ 1,000 ML IV (08:55)
[2017-12-13 13:12] LABS: ANION GAP 10 (8-16); BLOOD UREA NITROGEN 4 mg/dl (7-20); CALCIUM 8.9 mg/dl (8.4-10.2); CARBON DIOXIDE 26 mmol/L (21-31); CHLORIDE 100 mmol/L (97-110); CREATININE 0.53 mg/dl (0.44-1.00); GLUCOSE 95 mg/dl (70-220); LIPASE 1031 U/L (23-300); POTASSIUM 3.7 mmol/L (3.5-5.1); SODIUM 132 mmol/L (135-144)
[2017-12-13] MEDS ORDERED: HYDROmorphONE 4 MG TAB PO (18:30)
[2017-12-14] MEDS: D5W-0.45 NACL + KCL 20 MEQ 1,000 ML IV ×2 (03:34→04:17)
[2017-12-14] MEDS: PANTOPRAZOLE 40 MG INJ IV (04:25)
[2017-12-14] MEDS: MEROPENEM 1 GM/50ML(PMX) 50 ML IVPB ×2 (08:36→20:35)
[2017-12-14 18:00] LABS: ALANINE AMINOTRANSFERASE 28 IU/L (13-69); ALBUMIN 3.5 g/dl (3.3-4.9); ALKALINE PHOSPHATASE 168 IU/L (42-121); ANION GAP 13 (8-16); ASPARTATE AMINO TRANSFERASE 22 IU/L (15-46); BILIRUBIN,INDIRECT 0.5 mg/dl (0-1.1); BILIRUBIN,TOTAL 0.5 mg/dl (0.2-1.3); BLOOD UREA NITROGEN 8 mg/dl (7-20); CALCIUM 9.2 mg/dl (8.4-10.2); CARBON DIOXIDE 23 mmol/L (21-31); CHLORIDE 100 mmol/L (97-110); CREATININE 0.53 mg/dl (0.44-1.00); GLUCOSE 119 mg/dl (70-220); POTASSIUM 3.3 mmol/L (3.5-5.1); SODIUM 133 mmol/L (135-144)
[2017-12-14] MEDS: POTASSIUM CHLORIDE (SR) 10 MEQ TAB PO (21:30)
[2017-12-14] MEDS: POTASSIUM CHLORIDE 30 MEQ in SOD CHLORIDE 0.9% 1,000 ML IV (22:37)
[2017-12-15] MEDS: PANTOPRAZOLE 40 MG INJ IV (05:32)
[2017-12-15 05:36] LABS: ADD MAN DIFF? NO
[2017-12-15 05:43] LABS: BASOPHILS % 0.6 % (0.0-2.0); EOSINOPHILS # 0.1 10^3/ul (0.0-0.5); EOSINOPHILS % 1.5 % (0.0-7.0); HEMATOCRIT 27.9 % (37.0-47.0); HEMOGLOBIN 9.4 g/dl (12.0-16.0); LYMPHOCYTES % 30.3 % (15.0-51.0); MEAN CORPUSCULAR HEMOGLOBIN 31.4 pg (29.0-33.0); MEAN CORPUSCULAR HGB CONC 33.7 g/dl (32.0-37.0); MEAN CORPUSCULAR VOLUME 93.3 fl (82.0-101.0); MEAN PLATELET VOLUME 8.5 fl (7.4-10.4); MONOCYTE # 0.5 10^3/ul (0.3-0.9); NEUTROPHIL # 3.9 10^3/ul (1.6-7.5); NEUTROPHILS % 59.1 % (39.0-77.0); PLATELET COUNT 408 10^3/UL (140-415); RED BLOOD COUNT 2.99 10^6/ul (4.20-5.40); RED CELL DISTRIBUTION WIDTH 13.8 % (11.5-14.5)
[2017-12-15 05:43] LABS: WHITE BLOOD COUNT 6.7 10^3/ul (4.8-10.8)
[2017-12-15 06:18] LABS: ANION GAP 10 (8-16); BLOOD UREA NITROGEN 8 mg/dl (7-20); CARBON DIOXIDE 24 mmol/L (21-31); CHLORIDE 106 mmol/L (97-110); CREATININE 0.55 mg/dl (0.44-1.00); GLUCOSE 87 mg/dl (70-220); POTASSIUM 4.3 mmol/L (3.5-5.1); SODIUM 136 mmol/L (135-144)
[2017-12-15 06:36] LABS: LIPASE 1069 U/L (23-300)
[2017-12-15] MEDS: MEROPENEM 1 GM/50ML(PMX) 50 ML IVPB ×2 (09:27→20:40)
[2017-12-15] MEDS: POTASSIUM CHLORIDE 30 MEQ in SOD CHLORIDE 0.9% 1,000 ML IV ×2 (14:10→18:47)
[2017-12-16] MEDS: PANTOPRAZOLE 40 MG INJ IV (05:27)
[2017-12-16 07:13] LABS: AMYLASE 174 U/L (11-123)
[2017-12-16 07:13] LABS: LIPASE 1514 U/L (23-300)
[2017-12-16 07:16] LABS: ANION GAP 9 (8-16); BLOOD UREA NITROGEN 10 mg/dl (7-20); CALCIUM 8.8 mg/dl (8.4-10.2); CARBON DIOXIDE 25 mmol/L (21-31); CHLORIDE 107 mmol/L (97-110); CREATININE 0.56 mg/dl (0.44-1.00); GLUCOSE 89 mg/dl (70-220); SODIUM 137 mmol/L (135-144)
[2017-12-16] MEDS: MEROPENEM 1 GM/50ML(PMX) 50 ML IVPB (08:24)
[2017-12-16] MEDS: POTASSIUM CHLORIDE 30 MEQ in SOD CHLORIDE 0.9% 1,000 ML IV (11:52)
[2017-12-16] MEDS: CIPROFLOXACIN 500 MG TAB PO (17:52)
[2017-12-17] MEDS: POTASSIUM CHLORIDE 30 MEQ in SOD CHLORIDE 0.9% 1,000 ML IV ×2 (05:53→23:35)
[2017-12-17] MEDS: PANTOPRAZOLE 40 MG INJ IV (05:53)
[2017-12-17] MEDS: CIPROFLOXACIN 500 MG TAB PO ×2 (05:53→18:16)
[2017-12-17 06:11] LABS: AMYLASE 196 U/L (11-123)
[2017-12-17 06:11] LABS: LIPASE 1194 U/L (23-300)
[2017-12-18] MEDS: CIPROFLOXACIN 500 MG TAB PO ×2 (05:33→17:32)
[2017-12-18] MEDS: PANTOPRAZOLE 40 MG INJ IV (05:33)
[2017-12-18] MEDS: POTASSIUM CHLORIDE 30 MEQ in SOD CHLORIDE 0.9% 1,000 ML IV (17:31)
[2017-12-19 05:20] LABS: ADD MAN DIFF? NO; BASOPHIL # 0.1 10^3/ul (0.0-0.1); BASOPHILS % 0.9 % (0.0-2.0); EOSINOPHILS # 0.1 10^3/ul (0.0-0.5); EOSINOPHILS % 1.9 % (0.0-7.0); HEMATOCRIT 27.1 % (37.0-47.0); HEMOGLOBIN 9.1 g/dl (12.0-16.0); IMMATURE GRANS #M 0.01 10^3/ul; IMMATURE GRANS % (M) 0.2 %; LYMPHOCYTES # 2.4 10^3/ul (0.8-2.9); LYMPHOCYTES % 42.4 % (15.0-51.0); MEAN CORPUSCULAR HEMOGLOBIN 31.8 pg (29.0-33.0); MEAN CORPUSCULAR HGB CONC 33.6 g/dl (32.0-37.0); MEAN CORPUSCULAR VOLUME 94.8 fl (82.0-101.0); MEAN PLATELET VOLUME 8.8 fl (7.4-10.4); MONOCYTE # 0.5 10^3/ul (0.3-0.9); MONOCYTES % 8.3 % (0.0-11.0); NEUTROPHIL # 2.7 10^3/ul (1.6-7.5); NEUTROPHILS % 46.3 % (39.0-77.0); PLATELET COUNT 353 10^3/UL (140-415); RED BLOOD COUNT 2.86 10^6/ul (4.20-5.40); RED CELL DISTRIBUTION WIDTH 13.6 % (11.5-14.5)
[2017-12-19 05:20] LABS: WHITE BLOOD COUNT 5.8 10^3/ul (4.8-10.8)
[2017-12-19] MEDS: CIPROFLOXACIN 500 MG TAB PO (05:40)
[2017-12-19] MEDS: PANTOPRAZOLE (EC) 40 MG TAB PO (05:40)
[2017-12-19 05:47] LABS: AMYLASE 202 U/L (11-123); ANION GAP 11 (8-16); BLOOD UREA NITROGEN 15 mg/dl (7-20); CALCIUM 9.2 mg/dl (8.4-10.2); CARBON DIOXIDE 25 mmol/L (21-31); CHLORIDE 106 mmol/L (97-110); CREATININE 0.64 mg/dl (0.44-1.00); GLUCOSE 91 mg/dl (70-220); LIPASE 1241 U/L (23-300); POTASSIUM 3.9 mmol/L (3.5-5.1); SODIUM 138 mmol/L (135-144)
[2017-12-19] MEDS: POTASSIUM CHLORIDE 30 MEQ in SOD CHLORIDE 0.9% 1,000 ML IV (16:39)
[2017-12-19] MEDS: CREON (12k-38k-60k) 1 CAP PO (17:46)
[2017-12-20] MEDS: PANTOPRAZOLE (EC) 40 MG TAB PO (05:35)
[2017-12-20] MEDS: MAGNESIUM HYDROXIDE 30ML CUP PO (05:51)
[2017-12-20 06:22] LABS: ADD MAN DIFF? NO
[2017-12-20 06:33] LABS: WHITE BLOOD COUNT 4.5 10^3/ul (4.8-10.8)
[2017-12-20 06:34] LABS: BASOPHIL # 0.1 10^3/ul (0.0-0.1); BASOPHILS % 1.1 % (0.0-2.0); EOSINOPHILS # 0.1 10^3/ul (0.0-0.5); EOSINOPHILS % 2.4 % (0.0-7.0); HEMATOCRIT 26.8 % (37.0-47.0); IMMATURE GRANS #M 0.01 10^3/ul; IMMATURE GRANS % (M) 0.2 %; LYMPHOCYTES % 43.4 % (15.0-51.0); MEAN CORPUSCULAR HEMOGLOBIN 31.9 pg (29.0-33.0); MEAN CORPUSCULAR HGB CONC 33.6 g/dl (32.0-37.0); MEAN PLATELET VOLUME 9.1 fl (7.4-10.4); MONOCYTE # 0.4 10^3/ul (0.3-0.9); MONOCYTES % 8.1 % (0.0-11.0); NEUTROPHILS % 44.8 % (39.0-77.0); PLATELET COUNT 343 10^3/UL (140-415); RED BLOOD COUNT 2.82 10^6/ul (4.20-5.40); RED CELL DISTRIBUTION WIDTH 13.9 % (11.5-14.5)
[2017-12-20 06:43] LABS: ANION GAP 12 (8-16); BLOOD UREA NITROGEN 14 mg/dl (7-20); CARBON DIOXIDE 25 mmol/L (21-31); CHLORIDE 107 mmol/L (97-110); CREATININE 0.55 mg/dl (0.44-1.00); GLUCOSE 86 mg/dl (70-220); POTASSIUM 3.9 mmol/L (3.5-5.1); SODIUM 140 mmol/L (135-144)
[2017-12-20 06:46] LABS: LIPASE 948 U/L (23-300)
[2017-12-20] MEDS: CREON (12k-38k-60k) 1 CAP PO ×2 (08:09→11:30)
[2017-12-20] MEDS: POTASSIUM CHLORIDE 30 MEQ in SOD CHLORIDE 0.9% 1,000 ML IV (10:06)
== END 2017-12-20 15:05 | disposition home or self-care (01) | DRG 871 ==
LOC: PP2 21:43 → E/R 15:47 → PP2 18:47
PROC: 0FCC8ZZ Extirpation of Matter from Ampulla of Vater, Via Natural or Artificial Opening Endoscopic (ICD-10-PCS; principal; 2017-12-04 12:45)
PROC: 0FC98ZZ Extirpation of Matter from Common Bile Duct, Via Natural or Artificial Opening Endoscopic (ICD-10-PCS; 2017-12-04 12:45)
PROC: 0F798DZ Dilation of Common Bile Duct with Intraluminal Device, Via Natural or Artificial Opening Endoscopic (ICD-10-PCS; 2017-12-04 12:45)
DX: A41.51 Sepsis due to Escherichia coli [E. coli] (principal); K85.10 Biliary acute pancreatitis without necrosis or infection; K80.33 Calculus of bile duct with acute cholangitis with obstruction; E87.1 Hypo-osmolality and hyponatremia; D64.9 Anemia, unspecified; R19.7 Diarrhea, unspecified; I10 Essential (primary) hypertension; Z90.49 Acquired absence of other specified parts of digestive tract; Z90.710 Acquired absence of both cervix and uterus; Z85.3 Personal history of malignant neoplasm of breast; Z87.891 Personal history of nicotine dependence
CPT/HCPCS: 36415; 74018; 74150; 74176; 74181; 74240; 74250; 74280; 74330; 76705; 80048; 80053; 81001; 82150; 82270; 83036; 83605; 83690; 85014; 85018; 85025; 85045; 87040; 87075; 96374; 96375; 99285-25

== ENCOUNTER 2018-03-19 08:15 | Day surgery (SDC) | payer OTHER ==
[~2018-03-19 08:15] MED LIST: PROPOFOL 200 MG INJ
[2018-03-19] MEDS ORDERED: PROPOFOL 40 ML (09:45)
[2018-03-19] MEDS ORDERED: LIDOCAINE 2% (SDV) 5 ML INJ (09:45)
== END 2018-03-19 15:28 | disposition home or self-care (01) ==
LOC: GIL 08:15
DX: K64.2 Third degree hemorrhoids (principal)
CPT/HCPCS: 45378

== ENCOUNTER 2018-08-12 12:41 | Emergency (ER) | payer OTHER ==
[2018-08-12 15:15] LABS: ADD MAN DIFF? NO
[2018-08-12 15:19] LABS: WHITE BLOOD COUNT 7.6 10^3/ul (4.8-10.8)
[2018-08-12 15:19] LABS: BASOPHIL # 0.1 10^3/ul (0.0-0.1); BASOPHILS % 0.7 % (0.0-2.0); EOSINOPHILS # 0.1 10^3/ul (0.0-0.5); EOSINOPHILS % 1.6 % (0.0-7.0); HEMATOCRIT 37.1 % (37.0-47.0); HEMOGLOBIN 12.2 g/dl (12.0-16.0); LYMPHOCYTES # 2.8 10^3/ul (0.8-2.9); LYMPHOCYTES % 36.8 % (15.0-51.0); MEAN CORPUSCULAR HEMOGLOBIN 31.1 pg (29.0-33.0); MEAN CORPUSCULAR HGB CONC 32.9 g/dl (32.0-37.0); MEAN CORPUSCULAR VOLUME 94.6 fl (82.0-101.0); MEAN PLATELET VOLUME 9.2 fl (7.4-10.4); MONOCYTE # 0.5 10^3/ul (0.3-0.9); MONOCYTES % 6.6 % (0.0-11.0); NEUTROPHIL # 4.1 10^3/ul (1.6-7.5); PLATELET COUNT 222 10^3/UL (140-415); RED BLOOD COUNT 3.92 10^6/ul (4.20-5.40); RED CELL DISTRIBUTION WIDTH 12.5 % (11.5-14.5)
[2018-08-12] MEDS: ONDANSETRON 4 MG INJ IV (15:30)
[2018-08-12] MEDS: morphine 4 MG/ML VIAL IV (15:34)
[2018-08-12 15:36] LABS: ALANINE AMINOTRANSFERASE 18 IU/L (13-69); ALBUMIN 4.7 g/dl (3.3-4.9); ALBUMIN/GLOBULIN RATIO 1.11; ALKALINE PHOSPHATASE 94 IU/L (42-121); ANION GAP 11 (5-13); ASPARTATE AMINO TRANSFERASE 27 IU/L (15-46); BILIRUBIN,INDIRECT 0.9 mg/dl (0-1.1); BILIRUBIN,TOTAL 0.9 mg/dl (0.2-1.3); BLOOD UREA NITROGEN 15 mg/dl (7-20); CALCIUM 9.4 mg/dl (8.4-10.2); CARBON DIOXIDE 23 mmol/L (21-31); CHLORIDE 105 mmol/L (97-110); CREATININE 0.65 mg/dl (0.44-1.00); GLUCOSE 95 mg/dl (70-220); LIPASE 194 U/L (23-300); POTASSIUM 4.1 mmol/L (3.5-5.1); SODIUM 139 mmol/L (135-144); TOTAL PROTEIN 8.9 g/dl (6.1-8.1)
[2018-08-12 15:45] LABS: INR 0.99; PROTIME 13.2 Sec (11.9-14.9)
[2018-08-12 15:46] LABS: PARTIAL THROMBOPLASTIN TIME 32.6 Sec (23.0-35.0)
[2018-08-12 15:48] LABS: TROPONIN-I < 0.012 ng/ml (0.000-0.120)
[2018-08-12 15:55] LABS: ADD UMIC YES; UR ASCORBIC ACID 40 mg/dL (NEGATIVE); UR BACTERIA FEW /HPF (NONE SEEN); UR BILIRUBIN (Dip) NEGATIVE (NEGATIVE); UR BLOOD (Dip) NEGATIVE (NEGATIVE); UR CLARITY SLIGHTLY CLOUDY (CLEAR); UR COLOR YELLOW (YELLOW); UR GLUCOSE (Dip) NEGATIVE (NEGATIVE); UR KETONES (Dip) NEGATIVE (NEGATIVE); UR LEUKOCYTE ESTERASE (Dip) 1+ Leu/ul (NEGATIVE); UR NITRITE (Dip) NEGATIVE (NEGATIVE); UR RBC 0 /HPF (0-5); UR TOTAL PROTEIN (Dip) NEGATIVE (NEGATIVE); UR UROBILINOGEN (Dip) NEGATIVE (NEGATIVE); UR WBC 6 /HPF (0-5)
[2018-08-12] MEDS: NITROFURANTOIN (SR) 100 MG CAP PO (17:03)
== END 2018-08-12 18:36 | disposition home or self-care (01) ==
LOC: E/R 12:41
DX: N30.90 Cystitis, unspecified without hematuria (principal); Z85.3 Personal history of malignant neoplasm of breast
CPT/HCPCS: 36415; 74176; 80053; 81001; 83690; 84484; 85025; 85610; 85730; 96374; 96375; 99285-25

== ENCOUNTER 2018-09-03 07:45 | Day surgery (SDC) | payer OTHER ==
[2018-09-03] MEDS: INDOMETHACIN 50 MG SUPP PR ×2 (09:24→09:30)
[2018-09-03] MEDS: DIPHENHYDRAMINE 50 MG INJ IV (09:24)
[2018-09-03] MEDS ORDERED: IOHEXOL 300MG/ML 30 ML BTL (09:28)
[2018-09-03] MEDS ORDERED: DIPHENHYDRAMINE 50 MG INJ (09:28)
[2018-09-03] MEDS ORDERED: PROPOFOL 20 ML (09:41)
[2018-09-03] MEDS ORDERED: FENTAnyl 50 MCG/ML VIAL (09:41)
[2018-09-03] MEDS ORDERED: ROCURONIUM 50 MG INJ (09:41)
[2018-09-03] MEDS ORDERED: ONDANSETRON 4 MG INJ (09:44)
[2018-09-03] MEDS ORDERED: DEXAMETHASONE 4 MG/ML 5 ML INJ (09:44)
[2018-09-03] MEDS ORDERED: HYDROmorphONE 1 MG/5 ML IV SYRINGE IV ×2 (10:00)
[2018-09-03] MEDS ORDERED: MEPERIDINE 25 MG INJ IV (10:00)
[2018-09-03] MEDS ORDERED: EPHEDrine SULFATE 50 MG/5 ML SYG IV (10:00)
[2018-09-03] MEDS ORDERED: LABETALOL HCL 20MG INJ IV (10:00)
[2018-09-03] MEDS ORDERED: ONDANSETRON 4 MG INJ IV (10:00)
[2018-09-03] MEDS ORDERED: FENTAnyl 50 MCG/ML VIAL IV ×2 (10:00)
[2018-09-03] MEDS ORDERED: DIPHENHYDRAMINE 50 MG INJ IV (10:00)
[2018-09-03] MEDS ORDERED: NEOSTIGMINE 3 MG/3 ML SYRINGE (10:25)
[2018-09-03] MEDS ORDERED: GLYCOPYRROLATE 0.4 MG INJ (10:25)
[2018-09-03 12:08] LABS: ALANINE AMINOTRANSFERASE 24 IU/L (13-69); ALBUMIN 4.1 g/dl (3.3-4.9); ALBUMIN/GLOBULIN RATIO 1.13; ALKALINE PHOSPHATASE 61 IU/L (42-121); ANION GAP 10 (5-13); ASPARTATE AMINO TRANSFERASE 50 IU/L (15-46); BILIRUBIN,INDIRECT 0.5 mg/dl (0-1.1); BILIRUBIN,TOTAL 0.5 mg/dl (0.2-1.3); BLOOD UREA NITROGEN 16 mg/dl (7-20); CALCIUM 9.2 mg/dl (8.4-10.2); CARBON DIOXIDE 26 mmol/L (21-31); CHLORIDE 107 mmol/L (97-110); CREATININE 0.72 mg/dl (0.44-1.00); GLUCOSE 89 mg/dl (70-220); POTASSIUM 4.8 mmol/L (3.5-5.1); SODIUM 143 mmol/L (135-144); TOTAL PROTEIN 7.7 g/dl (6.1-8.1)
[2018-09-03 12:42] LABS: CANCER ANTIGEN 19-9 7.8 U/ml (0.0-37.0)
== END 2018-09-03 12:26 | disposition home or self-care (01) ==
LOC: GIL 07:45 → SDS 07:45 → GIL 12:26
DX: K80.50 Calculus of bile duct without cholangitis or cholecystitis without obstruction (principal); Z45.82 Encounter for adjustment or removal of myringotomy device (stent) (tube)
CPT/HCPCS: 43264; 74330; 80053; 86301; 88104; 88305

== ENCOUNTER 2018-12-08 10:06 | Day surgery (SDC) | payer OTHER ==
[2018-12-08 12:02] LABS: ADD MAN DIFF? NO
[2018-12-08 12:13] LABS: BASOPHILS % 0.3 % (0.0-2.0); EOSINOPHILS # 0.1 10^3/ul (0.0-0.5); EOSINOPHILS % 0.8 % (0.0-7.0); HEMATOCRIT 36.2 % (37.0-47.0); LYMPHOCYTES # 2.3 10^3/ul (0.8-2.9); LYMPHOCYTES % 39.2 % (15.0-51.0); MEAN CORPUSCULAR HEMOGLOBIN 31.7 pg (29.0-33.0); MEAN CORPUSCULAR HGB CONC 33.1 g/dl (32.0-37.0); MEAN CORPUSCULAR VOLUME 95.8 fl (82.0-101.0); MEAN PLATELET VOLUME 9.8 fl (7.4-10.4); MONOCYTE # 0.4 10^3/ul (0.3-0.9); NEUTROPHIL # 3.2 10^3/ul (1.6-7.5); NEUTROPHILS % 53.4 % (39.0-77.0); PLATELET COUNT 229 10^3/UL (140-415); RED BLOOD COUNT 3.78 10^6/ul (4.20-5.40)
[2018-12-08 12:26] LABS: INR 0.91; PROTIME 12.4 Sec (11.9-14.9)
[2018-12-08 12:27] LABS: PARTIAL THROMBOPLASTIN TIME 31.8 Sec (23.0-35.0)
[2018-12-08 12:28] LABS: ALANINE AMINOTRANSFERASE 20 IU/L (13-69); ALBUMIN 4.9 g/dl (3.3-4.9); ALBUMIN/GLOBULIN RATIO 1.28; ALKALINE PHOSPHATASE 72 IU/L (42-121); ANION GAP 10 (5-13); ASPARTATE AMINO TRANSFERASE 35 IU/L (15-46); BILIRUBIN,INDIRECT 0.9 mg/dl (0-1.1); BILIRUBIN,TOTAL 0.9 mg/dl (0.2-1.3); BLOOD UREA NITROGEN 17 mg/dl (7-20); CALCIUM 9.4 mg/dl (8.4-10.2); CARBON DIOXIDE 26 mmol/L (21-31); CHLORIDE 107 mmol/L (97-110); CREATININE 0.69 mg/dl (0.44-1.00); GLUCOSE 91 mg/dl (70-220); POTASSIUM 4.5 mmol/L (3.5-5.1); SODIUM 143 mmol/L (135-144); TOTAL PROTEIN 8.7 g/dl (6.1-8.1)
[2018-12-08] MEDS ORDERED: LACTATED RINGER'S 1,000 ML IV (12:30)
[2018-12-08] MEDS ORDERED: FENTAnyl 50 MCG/ML VIAL (12:57)
[2018-12-08] MEDS ORDERED: METOPROLOL 5 MG INJ (12:57)
[2018-12-08] MEDS ORDERED: DESFLURANE 15 MIN (12:57)
[2018-12-08] MEDS ORDERED: LIDOCAINE 2% (SDV) 5 ML INJ (12:57)
[2018-12-08] MEDS ORDERED: FAMOTIDINE 20 MG INJ (12:57)
[2018-12-08] MEDS ORDERED: ROCURONIUM 50 MG INJ (12:58)
[2018-12-08] MEDS ORDERED: PROPOFOL 40 ML (12:58)
[2018-12-08] MEDS ORDERED: PROVENTIL HFA 6.7GM INHALER (12:58)
[2018-12-08] MEDS ORDERED: ONDANSETRON 4 MG INJ (12:58)
[2018-12-08] MEDS ORDERED: DIPHENHYDRAMINE 50 MG INJ (12:59)
[2018-12-08] MEDS ORDERED: FENTAnyl 50 MCG/ML VIAL IV ×2 (13:00)
[2018-12-08] MEDS ORDERED: morphine 2 MG INJ IV ×2 (13:00)
[2018-12-08] MEDS ORDERED: LABETALOL HCL 20MG INJ IV (13:00)
[2018-12-08] MEDS ORDERED: DIPHENHYDRAMINE 50 MG INJ IV (13:00)
[2018-12-08] MEDS ORDERED: EPHEDrine 25 MG/5 ML SYG IV (13:00)
[2018-12-08] MEDS ORDERED: HYDROmorphONE 1 MG/5 ML IV SYRINGE IV ×3 (13:00)
[2018-12-08] MEDS ORDERED: ALBUTEROL 0.083% (NEB) 2.5 MG/3 ML AMP HHN (13:00)
[2018-12-08] MEDS ORDERED: hydrALAzine 20 MG INJ IV ×2 (13:00→14:30)
[2018-12-08] MEDS ORDERED: MEPERIDINE 25 MG INJ IV (13:00)
[2018-12-08] MEDS ORDERED: ONDANSETRON 4 MG INJ IV (13:00)
[2018-12-08] MEDS ORDERED: INDOMETHACIN 50 MG PO (13:30)
[2018-12-08] MEDS ORDERED: INDOMETHACIN 50 MG SUPP PR (13:30)
[2018-12-08] MEDS ORDERED: SUGAMMADEX SODIUM 200 MG/2 ML VIAL IV (13:41)
[2018-12-08] MEDS ORDERED: IOHEXOL 300MG/ML 30 ML BTL (13:41)
[2018-12-08 14:40] LABS: CANCER ANTIGEN 19-9 5.6 U/ml (0.0-37.0)
== END 2018-12-08 16:17 | disposition home or self-care (01) ==
LOC: SDS 10:06
DX: K83.8 Other specified diseases of biliary tract (principal); Z88.0 Allergy status to penicillin; Z88.2 Allergy status to sulfonamides
CPT/HCPCS: 43261; 71045; 74330; 80053; 85025; 85610; 85730; 86301; 88307; 93005